=== PATIENT | male | born 1985 | race Caucasian/White ===

== ENCOUNTER → 2025-02-12 08:34 | Outpatient (REF) | payer BC, SELFPAY ==
[2025-02-12 09:08] VITALS: BP 135/80; BP_SYST 96
[2025-02-12] MEDS: ANCEF 10 IV (09:30)
[2025-02-12 10:50] VITALS: BP 134/84; BP_SYST 89
[2025-02-12 11:06] VITALS: BP 129/85; BP_SYST 80
== END ==
LOC: RADI 08:34
PROVIDERS: ATTENDING PHYSICIAN Family Medicine; FAMILY PHYSICIAN Physician Assistant
DX: M06.9 Rheumatoid arthritis, unspecified (principal)
CPT/HCPCS: 36561; 76937; 77001; 99152; 99153; C1769